=== PATIENT | female | born 2000 | race Caucasian/White ===

== ENCOUNTER 2021-06-03 18:10 | Emergency (ER) | payer SELFPAY ==
[2021-06-03 20:23] LABS: Bilirubin Neg (Negative); Blood, Urine 10 (Negative); Clarity Clear (Clear); Glucose, Urine (Dipstick) Normal (Negative); Ketone, Urine Negative (Negative); Leukocyte 500 (Negative); Nitrite Negative (Negative); Protein, Urine (Dipstick) Negative (Neg-Trace); Urobilinogen Normal mg/dL (Less than 2)
[2021-06-03 20:26] LABS: ALT (SGPT) 40 U/L (8-55); AST (SGOT) 20 U/L (5-34); Albumin 4.7 g/dL (3.5-5.0); Alkaline Phosphatase 33 U/L (40-110); Anion Gap 13 mmol/L (10-20); BUN (Urea Nitrogen) 7 mg/dL (7.0-18.7); Bilirubin, Total 0.5 mg/dL (0.2-1.2); Calc. Creatinine Clearance 0 mL/min (70-130); Calcium 9.3 mg/dL (7.8-10.44); Carbon Dioxide 22 mmol/L (22-29); Chloride 106 mmol/L (98-107); Glucose 85 mg/dL (70-105); Protein, Total 7.7 g/dL (6.0-8.3); Sodium 137 mmol/L (136-145)
[2021-06-03 20:31] LABS: Bacteria/HPF 3+ HPF (None Seen); Mucous/LPF 2+ LPF (<2+); RBC/HPF 0-3 HPF (0-3); WBC/HPF 21-50 HPF (0-3)
[2021-06-03 21:03] LABS: #Eosinphils 0.1 10x3/uL (0.0-0.5); #Monocytes 0.4 10x3/uL (0.0-1.1); #Neutrophils 4.3 10x3/uL (1.5-8.4); %Basophils 0.5 % (0.0-2.0); %Eosinophils 1.2 % (0.0-6.0); %Lymphocytes 34.4 % (18.0-47.0); %Monocytes 5.6 % (0.0-10.0); %Neutrophils 57.9 % (40.0-75.0); Hemoglobin 12.5 g/dL (12.0-15.5); Mean Corpuscular HGB CONC 33.3 g/dL (32.0-36.0); Mean Corpuscular Hemoglobin 30.4 pg (27.0-33.0); Mean Corpuscular Volume 91.2 fl (81.6-98.3); Mean Platelet Volume 11.2 fl (7.4-10.4); Platelet Count 169 10x3/uL (150-450); RBC Distribution Width 13.6 % (11.5-14.5); Red Blood Cell (RBC) Count 4.11 10x6/uL (3.90-5.03); White Blood Cell (WBC) Count 7.5 10x3/uL (3.5-10.5)
== END 2021-06-03 21:40 | disposition home or self-care (01) ==
LOC: CSHERS 18:10
DX: O23.42 Unspecified infection of urinary tract in pregnancy, second trimester (principal); N39.0 Urinary tract infection, site not specified; Z79.899 Other long term (current) drug therapy
CPT/HCPCS: 36415; 80053; 81003; 81015; 84702; 85025; 86900; 86901; 99283

== ENCOUNTER 2021-12-26 21:37 | Day surgery (SDC) | payer OTHER | END 2021-12-26 23:30 | disposition home or self-care (01) | LOC: CSHLD/OP 21:37 | PROVIDERS: ATTEND Obstetrics & Gynecology | DX: O99.891 Other specified diseases and conditions complicating pregnancy (principal); R61 Generalized hyperhidrosis; Z3A.39 39 weeks gestation of pregnancy | CPT/HCPCS: 99281 ==

== ENCOUNTER 2022-01-03 17:48 | Inpatient (IN) | payer OTHER ==
[~2022-01-03 17:48] MED LIST: Bupivacaine 0.25% HCL 30 ML VIAL ONE
[2022-01-03] MEDS ORDERED: Lidocaine 1% (PF) 30 ML VIAL SC PRN (18:27)
[2022-01-03] MEDS ORDERED: Acetaminophen 500 MG TAB PO PRN (18:27)
[2022-01-03] MEDS ORDERED: Carboprost 250 MCG/ML AMP IM PRN (18:27)
[2022-01-03] MEDS ORDERED: Promethazine HCl 25 MG/ML VIAL IM PRN (18:27)
[2022-01-03] MEDS ORDERED: HYDROcodone/Acetaminophen 5/325 mg Tablet PO PRN ×2 (18:27)
[2022-01-03] MEDS ORDERED: Ondansetron PF 4 MG/2 ML Vial IVP PRN (18:27)
[2022-01-03] MEDS ORDERED: hydrALAZINE 20 MG/ML VIAL SLOW IVP PRN (18:27)
[2022-01-03] MEDS ORDERED: Methylergonovine 0.2 MG/ML VIAL IM PRN (18:27)
[2022-01-03] MEDS ORDERED: Diphenoxylate HCl/Atropine Tablet PO PRN (18:27)
[2022-01-03] MEDS ORDERED: Butorphanol Tartrate 1 MG/ML VIAL SLOW IVP PRN (18:27)
[2022-01-03] MEDS ORDERED: Ibuprofen 800 MG TAB PO PRN (18:27)
[2022-01-03] MEDS ORDERED: Misoprostol 200 MCG TAB PR PRN (18:27)
[2022-01-03] MEDS ORDERED: Lactated Ringer's 1,000 ML IV SCH (18:30)
[2022-01-03] MEDS ORDERED: NS w/ Oxytocin 30 units 500 ML IV SCH ×2 (18:30)
[2022-01-03 18:39] VITALS: BMI 33.0
[2022-01-03 19:46] LABS: Hemoglobin 12.6 g/dL (12.0-15.5); Mean Corpuscular HGB CONC 33.5 g/dL (32.0-36.0); Mean Corpuscular Hemoglobin 30.4 pg (27.0-33.0); Mean Corpuscular Volume 90.8 fl (81.6-98.3); Mean Platelet Volume 11.8 fl (7.4-10.4); Platelet Count 203 10x3/uL (150-450); RBC Distribution Width 13.2 % (11.5-14.5); Red Blood Cell (RBC) Count 4.14 10x6/uL (3.90-5.03); White Blood Cell (WBC) Count 10.2 10x3/uL (3.5-10.5)
[2022-01-03] MEDS: Misoprostol 100 MCG TAB VAG SCH (19:58)
[2022-01-03 20:08] LABS: HBSAg Index 0.16 S/CO (0-0.99); Hep B Surf Ag Non-Reactive S/CO (NonReactive)
[2022-01-03 20:09] LABS: Syphilis Antibody Nonreactive (Nonreactive); Syphilis Antibody Index 0.06 S/CO (<1.00 Non-Reactive)
[2022-01-04] MEDS ORDERED: Fentanyl 2 mcg/Bup 0.1% Cadd 100 ML ONE ×3 (00:16→14:20)
[2022-01-04] MEDS ORDERED: diphenhydrAMINE 50 MG/ML VIAL IVP PRN (00:41)
[2022-01-04] MEDS ORDERED: Acetaminophen 325 MG TAB PO PRN (00:41)
[2022-01-04] MEDS ORDERED: Naloxone HCl 0.4 mg/ml Vial IVP PRN ×2 (00:41)
[2022-01-04] MEDS ORDERED: Lactated Ringer's 500 ML IV PRN (00:41)
[2022-01-04] MEDS ORDERED: Ondansetron PF 4 MG/2 ML Vial IVP PRN ×2 (00:41→22:30)
[2022-01-04] MEDS ORDERED: Promethazine HCl 25 MG/ML VIAL IM PRN (00:41)
[2022-01-04] MEDS ORDERED: Moisturizing Cream (Eucerin) 113 GM JAR TOP PRN (00:41)
[2022-01-04] MEDS ORDERED: ePHEDrine Sulfate 50 MG/10 ML VIAL SLOW IVP PRN (00:41)
[2022-01-04] MEDS ORDERED: Fentanyl 2 mcg/Bupivacaine 0.1% Cassette 100 ML EPIDURAL SCH (00:45)
[2022-01-04] MEDS ORDERED: Communication Order-Pharmacy FS SCH (00:45)
[2022-01-04] MEDS: Misoprostol 100 MCG TAB VAG SCH ×3 (02:38→23:47)
[2022-01-04 16:44] LABS: SARS-CoV-2 PCR by NAA Not Detected (NotDetected)
[2022-01-04] MEDS ORDERED: NS w/ Oxytocin 30 units 500 ML IV SCH (22:30)
[2022-01-04] MEDS ORDERED: Methylergonovine 0.2 MG/ML VIAL IM PRN (22:30)
[2022-01-04] MEDS ORDERED: Lanolin Ointment 7 GM TUBE TOP PRN (22:30)
[2022-01-04] MEDS ORDERED: Benzocaine-Menthol 82.5 ML CAN TOP PRN (22:30)
[2022-01-04] MEDS ORDERED: Bisacodyl 10 MG SUPP PR PRN (22:30)
[2022-01-04] MEDS ORDERED: HYDROcodone/Acetaminophen 5/325 mg Tablet PO PRN ×2 (22:30)
[2022-01-04] MEDS ORDERED: hydrALAZINE 20 MG/ML VIAL SLOW IVP PRN (22:30)
[2022-01-04] MEDS ORDERED: Milk Of Magnesia 30 ML UDCUP PO PRN (22:30)
[2022-01-04] MEDS ORDERED: Misoprostol 200 MCG TAB VAG PRN (22:30)
[2022-01-04] MEDS ORDERED: Ibuprofen 800 MG TAB PO SCH (22:45)
[2022-01-04] MEDS ORDERED: Docusate 100 MG CAP PO SCH (22:45)
[2022-01-05] MEDS: Ibuprofen 800 MG TAB PO SCH ×3 (06:23→22:14)
[2022-01-05] MEDS: Ferrous Sulfate 325 MG TAB PO SCH ×2 (08:21→15:51)
[2022-01-05] MEDS: Prenatal Vitamin 1 TAB PO SCH (09:20)
[2022-01-05] MEDS: Docusate 100 MG CAP PO SCH ×2 (09:20→22:14)
[2022-01-06] MEDS: Ibuprofen 800 MG TAB PO SCH ×2 (06:02→13:33)
[2022-01-06] MEDS: Ferrous Sulfate 325 MG TAB PO SCH (07:39)
[2022-01-06 08:03] VITALS: BP 118/77; TEMP 97.9
[2022-01-06] MEDS: Docusate 100 MG CAP PO SCH (09:11)
[2022-01-06] MEDS: Prenatal Vitamin 1 TAB PO SCH (09:11)
== END 2022-01-06 15:20 | disposition home or self-care (01) | DRG 807 ==
LOC: CSHLD/OP 17:48 → CSHLD 18:05 → CSHPP 01-04 22:20
PROVIDERS: ADMIT Student in an Organized Health Care Education/Training Program; ATTEND Student in an Organized Health Care Education/Training Program
PROC: 10E0XZZ Delivery of Products of Conception, External Approach (ICD-10-PCS; principal; 2022-01-01)
PROC: 0KQM0ZZ Repair Perineum Muscle, Open Approach (ICD-10-PCS; 2022-01-01)
PROC: 10907ZC Drainage of Amniotic Fluid, Therapeutic from Products of Conception, Via Natural or Artificial Opening (ICD-10-PCS; 2022-01-01)
DX: O41.03X0 Oligohydramnios, third trimester, not applicable or unspecified (principal); Z37.0 Single live birth; O76 Abnormality in fetal heart rate and rhythm complicating labor and delivery; O32.6XX0 Maternal care for compound presentation, not applicable or unspecified; O70.1 Second degree perineal laceration during delivery; Z20.822 Contact with and (suspected) exposure to COVID-19; Z3A.41 41 weeks gestation of pregnancy; Z79.899 Other long term (current) drug therapy
CPT/HCPCS: 36415; 51702; 85027; 86780; 86850; 86900; 86901; 87340; J2590; S0020; U0003; U0005